=== PATIENT | female | born 1960 | race Caucasian/White ===

== ENCOUNTER 2019-04-04 06:57 | Day surgery (SDC) | payer OTHER ==
[~2019-04-04] VITALS: Ht 154.9 cm; Wt 57.2 kg
[2019-04-04] VITALS (9 sets, daily range): BP systolic 91–106; BP diastolic 60–80; PULSE 70–80; RESP 4–22; Ht 154.9 cm; Wt 57.2 kg
[~2019-04-04 06:57] MED LIST: ASPI-903 PO; CHOLESTEROL MED.; IBUP-1542 PO; MECL25TA2 PO
[2019-04-04] MEDS ORDERED: PROPOFOL 40 ML ONE ×2 (08:27→09:28)
[2019-04-04] MEDS ORDERED: LIDOCAINE 2% (SDV) 5 ML INJ ONE (08:27)
[2019-04-04] MEDS ORDERED: ONDANSETRON 4 MG INJ IV PRN (08:30)
[2019-04-04] MEDS ORDERED: EPHEDrine 25 MG/5 ML SYG ONE (09:53)
== END 2019-04-04 11:52 | disposition home or self-care (01) ==
LOC: GIL 06:57
PROVIDERS: ATTEND Internal Medicine Gastroenterology
DX: Z12.11 Encounter for screening for malignant neoplasm of colon (principal); D12.0 Benign neoplasm of cecum; D12.3 Benign neoplasm of transverse colon; K64.9 Unspecified hemorrhoids
CPT/HCPCS: 45385; Z7610; 88305